=== PATIENT | female | born 1965 | race Caucasian/White ===

== ENCOUNTER 2017-10-22 13:35 | Emergency (ER) | payer OTHER ==
[~2017-10-22] VITALS: Ht 165.1 cm; Wt 61.4 kg
[~2017-10-22 13:35] MED LIST: CHOL20002 PO; CYCL-259 PO; ENZY1TAB2 PO; GLUC500T11 PO; LISI-170 PO; MULT-658 PO; OXYC1TAB9 PO; OXYC30TA66 PO; SERT50TA5 PO; [UNRECOGNIZED DRUG - CODE] PO
[2017-10-22] MEDS ORDERED: OXYcodone/APAP 5/325MG TABLET PO ONE (15:00)
[2017-10-22 15:31] VITALS: BP 147/83
[2017-10-22] MEDS ORDERED: OXYcodone IR 5MG TABLET PO ONE (16:30)
== END 2017-10-22 17:25 | disposition home or self-care (01) ==
LOC: ED 16:52
DX: S22.41XA Multiple fractures of ribs, right side, initial encounter for closed fracture (principal); X58.XXXA Exposure to other specified factors, initial encounter; Y93.89 Activity, other specified; Y92.89 Other specified places as the place of occurrence of the external cause; Y99.8 Other external cause status; G89.29 Other chronic pain; M25.551 Pain in right hip; I10 Essential (primary) hypertension
CPT/HCPCS: 93005; 99284

== ENCOUNTER 2019-01-01 10:22 | Emergency (ER) | payer OTHER ==
[~2019-01-01] VITALS: Ht 165.1 cm; Wt 66.0 kg
[~2019-01-01 10:22] MED LIST changes: +OXYC-432 PO; -OXYC1TAB9 PO; +SERT50TA28 PO; -SERT50TA5 PO
[2019-01-01] MEDS ORDERED: SODIUM CHLORIDE 0.9% 1,000ML IVBOLUS ONE (11:00)
[2019-01-01] MEDS ORDERED: SODIUM CHLORIDE FLUSH 10ML SYR IVF ONE (11:00)
[2019-01-01] MEDS ORDERED: HALOPERIDOL 5 MG/ML IV ONE (11:00)
--- NOTE | 2019-01-01 11:00 | NUR ---
pt presented to ed with n/v x 1 month. pt states she recently stopped her ms and smokes marijuana daily. pt very anxious and dry heeving. pt a&ox4. pt placed on bp, cardiac and cont pulse oximeter. assessment completed.
[2019-01-01] MEDS ORDERED: HALOPERIDOL 5 MG/ML ONE (11:07)
--- NOTE | 2019-01-01 11:13 | NUR ---
iv started and blood drawn. meds given iv. ekg done and presented to .
[2019-01-01 11:20] LABS: BASOPHILS # (AUTO) 0.02 x10^3/uL (0-0.1); BASOPHILS % (AUTO) 0 % (0-1); EOSINOPHILS % (AUTO) 0 % (1-7); LYMPHOCYTES # (AUTO) 0.99 x10^3/uL (1-3.4); LYMPHOCYTES % (AUTO) 9 % (22-44); MD NO; MEAN CORPUSCULAR HGB CONC 33.6 g/dL (32.4-35.8); MEAN CORPUSCULAR VOLUME 92.2 fL (80-100); MEAN PLATELET VOLUME 6.6 fL (7.4-10.4); MONOCYTES # (AUTO) 0.11 x10^3/uL (0.2-0.8); MONOCYTES % (AUTO) 1 % (2-9); NEUTROPHILS # (AUTO) 9.46 x10^3/uL (1.8-6.8); NEUTROPHILS % (AUTO) 89 % (42-75); PLATELET COUNT 409 x10^3/uL (130-400); RED BLOOD COUNT 4.57 x10^6/uL (3.82-5.3); RED CELL DISTRIBUTION WIDTH 14.7 % (9.6-15.2)
--- NOTE | 2019-01-01 11:45 | NUR ---
redraw blood. blood clotted.
[2019-01-01 11:54] LABS: ALBUMIN 3.9 g/dL (3.4-5.0); ANION GAP 9 mmol/L (5-15); CHLORIDE 111 mmol/L (98-107)
[2019-01-01 11:58] LABS: ALANINE AMINOTRANSFERASE 44 U/L (12-78); ALKALINE PHOSPHATASE 82 U/L (45-117); BILIRUBIN,TOTAL 0.4 mg/dL (0.2-1.0); CREATININE 0.78 mg/dL (0.55-1.02); TOTAL PROTEIN 6.9 g/dL (6.4-8.2)
--- NOTE | 2019-01-01 11:58 | NUR ---
pt sleeping in bed at this time.
[2019-01-01 13:01] VITALS: BP 140/72
== END 2019-01-01 13:06 | disposition home or self-care (01) ==
LOC: ED 11:27
DX: R11.2 Nausea with vomiting, unspecified (principal); I10 Essential (primary) hypertension
CPT/HCPCS: 36415; 74018; 80053; 83690; 85025; 93005; 96361; 96374; 99284; J1630; J7030

== ENCOUNTER 2019-12-11 11:50 | Emergency (ER) | payer OTHER ==
[~2019-12-11] VITALS: Ht 165.1 cm; Wt 61.3 kg
[2019-12-11 11:52] VITALS: BP 172/84
--- NOTE | 2019-12-11 12:09 | NUR ---
md is at the bedside to assess
[2019-12-11] MEDS ORDERED: CEFTRIAXONE 1,000 MG ONE (12:26)
[2019-12-11] MEDS ORDERED: LIDOCAINE-MPF 1%, 2ML ONE (12:26)
[2019-12-11] MEDS ORDERED: CEFTRIAXONE 1,000 MG IM ONE (12:30)
[2019-12-11 12:31] LABS: BASOPHILS # (AUTO) 0.03 x10^3/uL (0-0.1); BASOPHILS % (AUTO) 1 % (0-1); EOSINOPHILS # (AUTO) 0.04 x10^3/uL (0-0.4); EOSINOPHILS % (AUTO) 1 % (1-7); LYMPHOCYTES # (AUTO) 2.52 x10^3/uL (1-3.4); LYMPHOCYTES % (AUTO) 42 % (22-44); MD NO; MEAN CORPUSCULAR HEMOGLOBIN 31.6 pg (27.0-34.8); MEAN CORPUSCULAR HGB CONC 33.2 g/dL (32.4-35.8); MEAN CORPUSCULAR VOLUME 95.2 fL (80-100); MEAN PLATELET VOLUME 6.5 fL (7.4-10.4); MONOCYTES # (AUTO) 0.52 x10^3/uL (0.2-0.8); MONOCYTES % (AUTO) 9 % (2-9); NEUTROPHILS # (AUTO) 2.87 x10^3/uL (1.8-6.8); NEUTROPHILS % (AUTO) 48 % (42-75); PLATELET COUNT 381 x10^3/uL (130-400); RED BLOOD COUNT 4.48 x10^6/uL (3.82-5.3); RED CELL DISTRIBUTION WIDTH 14.4 % (9.6-15.2)
--- NOTE | 2019-12-11 12:35 | NUR ---
pt complaining of 10/10 pain from im injection. z track method and appropriate anatomical markers utilized for injection. med mixed with 1% lidocaine for comfort. md is aware
--- NOTE | 2019-12-11 12:38 | NUR ---
reggie (rn) is assuming care of this pt at this time. sbar report was exchanged at the bedside.
[2019-12-11 12:40] LABS: ALBUMIN 4.2 g/dL (3.4-5.0); ANION GAP 6 mmol/L (5-15); CALCIUM 8.8 mg/dL (8.5-10.1); CHLORIDE 108 mmol/L (98-107)
== END 2019-12-11 13:58 | disposition home or self-care (01) ==
LOC: ED 12:10
DX: L03.211 Cellulitis of face (principal)
CPT/HCPCS: 36415; 80048; 82040; 85025; 96372; 99283; J0696

== ENCOUNTER 2020-02-27 17:07 | Emergency (ER) | payer OTHER ==
[~2020-02-27] VITALS: Ht 162.6 cm; Wt 66.7 kg
[2020-02-27 17:35] LABS: BASOPHILS % (AUTO) 1 % (0-1); EOSINOPHILS # (AUTO) 0.12 x10^3/uL (0-0.4); EOSINOPHILS % (AUTO) 1 % (1-7); LYMPHOCYTES # (AUTO) 3.27 x10^3/uL (1-3.4); LYMPHOCYTES % (AUTO) 36 % (22-44); MD NO; MEAN CORPUSCULAR HEMOGLOBIN 31.6 pg (27.0-34.8); MEAN CORPUSCULAR HGB CONC 33.4 g/dL (32.4-35.8); MEAN CORPUSCULAR VOLUME 94.6 fL (80-100); MEAN PLATELET VOLUME 6.8 fL (7.4-10.4); MONOCYTES % (AUTO) 9 % (2-9); NEUTROPHILS % (AUTO) 52 % (42-75); PLATELET COUNT 442 x10^3/uL (130-400); RED BLOOD COUNT 4.32 x10^6/uL (3.82-5.3)
[2020-02-27 17:41] LABS: ALBUMIN 3.8 g/dL (3.4-5.0); ANION GAP 4 mmol/L (5-15); CHLORIDE 106 mmol/L (98-107); CREATININE 1.13 mg/dL (0.55-1.02)
[2020-02-27 19:22] VITALS: BP 138/92
--- NOTE | 2020-02-27 19:22 | NUR ---
Pt presents to ed c/o chronic wound starting on "crotch" and treated as mrsa. States wound on "crotch" is well healed, but has been taking abx for 3 months for secondary on L side of cheek. Wound looks like it is in multiple stages of healing w/ a fresh scab on the top. Denies febrile s/s at home. Vss. Pa at bedside for assessment.
--- NOTE | 2020-02-27 19:31 | NUR ---
REPORT FROM HELDER LEON. [facility] DENIES NEEDS.
--- NOTE | 2020-02-27 20:02 | NUR ---
DC EDUCATION PROVIDED, PT DEMONSTRATES UNDERSTANDING.PT AMBULATED STEADILY TO DC WITH RN AND SO. SO TO TRANSPORT PT HOME
== END 2020-02-27 20:05 | disposition home or self-care (01) ==
LOC: ED 19:55
DX: S01.412D Laceration without foreign body of left cheek and temporomandibular area, subsequent encounter (principal); I10 Essential (primary) hypertension; J45.909 Unspecified asthma, uncomplicated; R00.0 Tachycardia, unspecified; X58.XXXD Exposure to other specified factors, subsequent encounter
CPT/HCPCS: 36415; 80048; 82040; 85025; 99283

== ENCOUNTER 2020-03-01 11:02 | Inpatient (IN) | payer OTHER ==
[~2020-03-01] VITALS: Ht 165.1 cm; Wt 66.5 kg
--- NOTE | 2020-03-01 11:29 | NUR ---
PT CAME TO ED CO OF MRSA ON HER CHEECK AND VAGINAL SWELLING AND PAIN. PT IS BEING TREATED FOR MRSA WITH ABX AND CREAM BUT SAYS "THE ABX ARE MAKING ME NV AND I FEEL HOT" PT RESTING IN [facility]. IS BEDSIDE. ISO CART OUTSIDE OF ROOM
[2020-03-01] MEDS ORDERED: SODIUM CHLORIDE 0.9% 1,000ML IVBOLUS ONE (12:00)
[2020-03-01] MEDS ORDERED: ONDANSETRON 2MG/ML, 2ML IVPush ONE (12:00)
[2020-03-01 12:11] LABS: BASOPHILS # (AUTO) 0.06 x10^3/uL (0-0.1); BASOPHILS % (AUTO) 1 % (0-1); EOSINOPHILS # (AUTO) 0.05 x10^3/uL (0-0.4); EOSINOPHILS % (AUTO) 1 % (1-7); LYMPHOCYTES # (AUTO) 1.65 x10^3/uL (1-3.4); LYMPHOCYTES % (AUTO) 21 % (22-44); MD NO; MEAN CORPUSCULAR HEMOGLOBIN 32.2 pg (27.0-34.8); MEAN CORPUSCULAR HGB CONC 34.5 g/dL (32.4-35.8); MEAN CORPUSCULAR VOLUME 93.5 fL (80-100); MEAN PLATELET VOLUME 6.7 fL (7.4-10.4); MONOCYTES % (AUTO) 9 % (2-9); NEUTROPHILS # (AUTO) 5.48 x10^3/uL (1.8-6.8); NEUTROPHILS % (AUTO) 69 % (42-75); PLATELET COUNT 356 x10^3/uL (130-400); RED BLOOD COUNT 4.16 x10^6/uL (3.82-5.3); RED CELL DISTRIBUTION WIDTH 14.4 % (9.6-15.2)
--- NOTE | 2020-03-01 12:19 | NUR ---
PT RESTING IN [facility]. RECTAL TEMP TAKEN. TEMP REPORTED TO
[2020-03-01 12:24] LABS: ALANINE AMINOTRANSFERASE 66 U/L (12-78); ALBUMIN 3.9 g/dL (3.4-5.0); ANION GAP 6 mmol/L (5-15); CALCIUM 9.4 mg/dL (8.5-10.1); CHLORIDE 109 mmol/L (98-107); CREATININE 0.98 mg/dL (0.55-1.02)
[2020-03-01 12:26] LABS: ALKALINE PHOSPHATASE 70 U/L (45-117); BILIRUBIN,TOTAL 0.8 mg/dL (0.2-1.0); TOTAL PROTEIN 7.2 g/dL (6.4-8.2)
[2020-03-01] MEDS ORDERED: ACETAMINOPHEN 500 MG TABLET ONE (12:28)
[2020-03-01] MEDS ORDERED: PROMETHAZINE 25 MG/ML, 1ML ONE (12:28)
[2020-03-01] MEDS ORDERED: PROMETHAZINE 25 MG/ML, 1ML IM ONE (12:30)
[2020-03-01] MEDS ORDERED: ACETAMINOPHEN 500 MG TABLET PO ONE (12:30)
[2020-03-01] MEDS ORDERED: MAALOX/HYOSCYAMINE/LIDOCAINE 45 ML BTL ONE (13:26)
[2020-03-01] MEDS ORDERED: MAALOX/HYOSCYAMINE/LIDOCAINE 45 ML BTL PO ONE (13:30)
--- NOTE | 2020-03-01 13:33 | NUR ---
PT REPORTS NAUSEA IMPROVMENT
[2020-03-01] MEDS ORDERED: METOCLOPRAMIDE 5 MG/ML, 2ML IVPush ONE (14:00)
[2020-03-01] MEDS ORDERED: METOCLOPRAMIDE 5 MG/ML, 2ML ONE (14:15)
--- NOTE | 2020-03-01 14:17 | NUR ---
PT IS RESTING IN [facility]. WATCHING VIDEOS ON CELL PHONE. NAD
[2020-03-01] MEDS: LINEZOLID PMX 600MG/300ML 300 ML IV SCH (16:21)
[2020-03-01] MEDS: SODIUM CHLORIDE 0.9% 1,000 ML IV SCH (16:21)
[2020-03-01] MEDS: ENOXAPARIN 40 MG/0.4 ML SQ SCH (16:22)
[2020-03-01] MEDS: LACTOBACILLUS CHEW TABLET PO SCH ×2 (16:22→21:07)
[2020-03-01 16:33] VITALS: BP 117/67
[2020-03-01] MEDS: MUPIROCIN OINT 2%, 22GM TP SCH (18:31)
[2020-03-01] MEDS: ACETAMINOPHEN 325 MG TABLET PO SCH (18:31)
[2020-03-01 18:49] VITALS: BP 140/79
[2020-03-01] MEDS: ONDANSETRON 2MG/ML, 2ML IVPush PRN (21:13)
[2020-03-02] MEDS: ACETAMINOPHEN 325 MG TABLET PO SCH ×4 (00:33→20:27)
[2020-03-02 00:34] VITALS: BP 113/78
[2020-03-02] MEDS: LINEZOLID PMX 600MG/300ML 300 ML IV SCH ×2 (04:42→15:46)
[2020-03-02 05:18] LABS: ANION GAP 5 mmol/L (5-15); CALCIUM 8.5 mg/dL (8.5-10.1); CHLORIDE 111 mmol/L (98-107)
[2020-03-02 05:19] LABS: BASOPHILS % (AUTO) 0 % (0-1); CREATININE 0.83 mg/dL (0.55-1.02); EOSINOPHILS # (AUTO) 0.07 x10^3/uL (0-0.4); EOSINOPHILS % (AUTO) 1 % (1-7); LYMPHOCYTES # (AUTO) 2.31 x10^3/uL (1-3.4); LYMPHOCYTES % (AUTO) 42 % (22-44); MD NO; MEAN CORPUSCULAR HEMOGLOBIN 31.7 pg (27.0-34.8); MEAN CORPUSCULAR HGB CONC 33.8 g/dL (32.4-35.8); MEAN PLATELET VOLUME 6.8 fL (7.4-10.4); MONOCYTES # (AUTO) 0.36 x10^3/uL (0.2-0.8); MONOCYTES % (AUTO) 7 % (2-9); NEUTROPHILS # (AUTO) 2.77 x10^3/uL (1.8-6.8); NEUTROPHILS % (AUTO) 50 % (42-75); PLATELET COUNT 323 x10^3/uL (130-400); RED BLOOD COUNT 3.89 x10^6/uL (3.82-5.3); RED CELL DISTRIBUTION WIDTH 14.5 % (9.6-15.2)
[2020-03-02] MEDS: ONDANSETRON 2MG/ML, 2ML IVPush PRN ×3 (06:40→22:38)
[2020-03-02] MEDS: MUPIROCIN OINT 2%, 22GM TP SCH ×2 (06:44→18:00)
[2020-03-02] MEDS: LISINOPRIL 20 MG TABLET PO SCH (07:34)
[2020-03-02] MEDS: SERTRALINE 50MG TABLET PO SCH (07:34)
[2020-03-02] MEDS: LACTOBACILLUS CHEW TABLET PO SCH ×3 (07:34→20:27)
[2020-03-02] MEDS: SODIUM CHLORIDE 0.9% 1,000 ML IV SCH (07:35)
[2020-03-02 08:30] VITALS: BP 136/85
[2020-03-02] MEDS ORDERED: CYCLOBENZAPRINE 10 MG TABLET PO SCH (09:00)
[2020-03-02] MEDS ORDERED: MAALOX/HYOSCYAMINE/LIDOCAINE 45 ML BTL PO ONE (11:30)
[2020-03-02 14:20] VITALS: BP 152/90
[2020-03-02] MEDS: ENOXAPARIN 40 MG/0.4 ML SQ SCH (15:30)
[2020-03-02] MEDS ORDERED: TIZA2CAP PO (15:53)
[2020-03-02] MEDS ORDERED: VENL75TA PO (15:53)
[2020-03-02] MEDS ORDERED: TRAZ-175 PO (15:53)
[2020-03-02 17:36] LABS: CLOSTRIDIUM DIFFICILE ANTIGEN NEGATIVE; CLOSTRIDIUM DIFFICILE TOXIN NEGATIVE (Negative)
[2020-03-02 18:42] VITALS: BP 121/76
[2020-03-02] MEDS: MELATONIN 5 MG TABLET PO SCH (20:27)
[2020-03-02] MEDS ORDERED: TRAZODONE 100MG TABLET PO SCH (21:00)
[2020-03-02] MEDS: TIZANIDINE 4MG TABLET PO SCH (22:57)
[2020-03-02] MEDS: KETOROLAC 30 MG/1 ML IV PRN (22:58)
[2020-03-03 00:23] VITALS: BP 95/63
[2020-03-03] MEDS: SODIUM CHLORIDE 0.9% 1,000 ML IV SCH ×2 (00:43→16:00)
[2020-03-03] MEDS: ACETAMINOPHEN 325 MG TABLET PO SCH ×4 (03:00→21:30)
[2020-03-03] MEDS: LINEZOLID PMX 600MG/300ML 300 ML IV SCH ×2 (03:34→16:00)
[2020-03-03] MEDS: ONDANSETRON 2MG/ML, 2ML IVPush PRN (05:28)
[2020-03-03 05:39] LABS: BASOPHILS # (AUTO) 0.04 x10^3/uL (0-0.1); BASOPHILS % (AUTO) 1 % (0-1); EOSINOPHILS # (AUTO) 0.11 x10^3/uL (0-0.4); EOSINOPHILS % (AUTO) 1 % (1-7); LYMPHOCYTES # (AUTO) 2.13 x10^3/uL (1-3.4); LYMPHOCYTES % (AUTO) 28 % (22-44); MD NO; MEAN CORPUSCULAR HEMOGLOBIN 31.7 pg (27.0-34.8); MEAN CORPUSCULAR HGB CONC 33.3 g/dL (32.4-35.8); MEAN CORPUSCULAR VOLUME 95.1 fL (80-100); MEAN PLATELET VOLUME 6.8 fL (7.4-10.4); MONOCYTES # (AUTO) 0.44 x10^3/uL (0.2-0.8); MONOCYTES % (AUTO) 6 % (2-9); NEUTROPHILS # (AUTO) 4.89 x10^3/uL (1.8-6.8); NEUTROPHILS % (AUTO) 64 % (42-75); PLATELET COUNT 298 x10^3/uL (130-400); RED BLOOD COUNT 3.82 x10^6/uL (3.82-5.3); RED CELL DISTRIBUTION WIDTH 14.4 % (9.6-15.2)
[2020-03-03 05:44] LABS: CHLORIDE 110 mmol/L (98-107)
[2020-03-03 05:55] LABS: ANION GAP 4 mmol/L (5-15); CREATININE 0.81 mg/dL (0.55-1.02)
[2020-03-03] MEDS: MUPIROCIN OINT 2%, 22GM TP SCH (06:15)
[2020-03-03] MEDS: KETOROLAC 30 MG/1 ML IV PRN (06:22)
[2020-03-03 06:46] VITALS: BP_SYST 139; BP_SYST 149; BP_DIAS 63; BP_DIAS 84
[2020-03-03] MEDS: LACTOBACILLUS CHEW TABLET PO SCH ×3 (08:40→21:30)
[2020-03-03] MEDS: ONDANSETRON ODT 4 MG PO PRN (08:40)
[2020-03-03] MEDS: SERTRALINE 50MG TABLET PO SCH (08:41)
[2020-03-03] MEDS: LISINOPRIL 20 MG TABLET PO SCH (08:41)
[2020-03-03] MEDS: PANTOPRAZOLE 40 MG IV IVPush SCH (08:41)
[2020-03-03] MEDS ORDERED: TIZANIDINE 4MG TABLET PO SCH (09:00)
[2020-03-03] MEDS ORDERED: SERTRALINE 50MG TABLET PO SCH (09:00)
[2020-03-03 09:16] LABS: HCT (SEDRATE) 36.3 % (34.6-47.8)
[2020-03-03] MEDS: DICYCLOMINE 10 MG CAPSULE PO SCH ×3 (10:46→21:30)
[2020-03-03] MEDS: ONDANSETRON 2MG/ML, 2ML IVPush SCH ×2 (10:46→16:00)
[2020-03-03] MEDS ORDERED: METOCLOPRAMIDE 5 MG/ML, 2ML IVPush PRN (11:00)
[2020-03-03] MEDS ORDERED: VENLAFAXINE XR 37.5MG CAP.ER.24H PO SCH ×3 (11:00→12:00)
[2020-03-03] MEDS: PROMETHAZINE 25MG TABLET PO PRN ×2 (11:35→21:30)
[2020-03-03] MEDS ORDERED: VENLAFAXINE XR 37.5MG CAP.ER.24H ONE (12:40)
[2020-03-03] MEDS: VENLAFAXINE XR 37.5MG CAP.ER.24H PO SCH (12:42)
[2020-03-03 14:00] VITALS: BP 128/77
[2020-03-03] MEDS: ENOXAPARIN 40 MG/0.4 ML SQ SCH (14:32)
[2020-03-03 18:41] VITALS: BP 153/94
[2020-03-03] MEDS: MELATONIN 5 MG TABLET PO SCH (21:31)
[2020-03-03] MEDS: TIZANIDINE 4MG TABLET PO SCH (21:31)
[2020-03-04] MEDS: ONDANSETRON 2MG/ML, 2ML IVPush SCH ×2 (00:15→05:45)
[2020-03-04] MEDS: KETOROLAC 30 MG/1 ML IV PRN (01:31)
[2020-03-04 02:06] VITALS: BP 115/79
[2020-03-04] MEDS: ACETAMINOPHEN 325 MG TABLET PO SCH ×2 (03:23→07:43)
[2020-03-04] MEDS: LINEZOLID PMX 600MG/300ML 300 ML IV SCH (03:23)
[2020-03-04] MEDS: DICYCLOMINE 10 MG CAPSULE PO SCH ×2 (05:45→10:25)
[2020-03-04 06:16] LABS: ALBUMIN 3.4 g/dL (3.4-5.0); ANION GAP 6 mmol/L (5-15); CALCIUM 8.5 mg/dL (8.5-10.1); CHLORIDE 108 mmol/L (98-107)
[2020-03-04 06:19] LABS: ALANINE AMINOTRANSFERASE 102 U/L (12-78); ALKALINE PHOSPHATASE 49 U/L (45-117); BILIRUBIN,TOTAL 0.3 mg/dL (0.2-1.0); CREATININE 0.87 mg/dL (0.55-1.02); TOTAL PROTEIN 6.1 g/dL (6.4-8.2)
[2020-03-04] MEDS ORDERED: MAGNESIUM SULFATE PMX 2GM/50ML 50 ML IV ONE (06:30)
[2020-03-04] MEDS ORDERED: POTASSIUM CHLORIDE 20 MEQ in SODIUM CHLORIDE 0.9% 250 ML IV ONE (06:30)
[2020-03-04 07:04] VITALS: BP 155/91
[2020-03-04] MEDS: VENLAFAXINE XR 37.5MG CAP.ER.24H PO SCH (07:42)
[2020-03-04] MEDS: LACTOBACILLUS CHEW TABLET PO SCH (07:43)
[2020-03-04] MEDS: LISINOPRIL 20 MG TABLET PO SCH (07:43)
[2020-03-04] MEDS: PANTOPRAZOLE 40 MG IV IVPush SCH (07:43)
[2020-03-04] MEDS: ONDANSETRON ODT 4 MG PO PRN (07:43)
[2020-03-04] MEDS: SERTRALINE 50MG TABLET PO SCH (07:44)
[2020-03-04] MEDS ORDERED: VENLAFAXINE XR 37.5MG CAP.ER.24H PO SCH (09:00)
[2020-03-04] MEDS ORDERED: DICY10CA3 PO (12:49)
[2020-03-04] MEDS ORDERED: ONDA4TAB13 PO (12:49)
[2020-03-04] MEDS ORDERED: PANT40TA3 PO (13:10)
== END 2020-03-04 13:33 | disposition home or self-care (01) | DRG 392 ==
LOC: ED 11:27 → EDIP 14:05 → 3N 15:05
PROVIDERS: ADMIT Internal Medicine; ATTEND Hospitalist
DX: K52.9 Noninfective gastroenteritis and colitis, unspecified (principal); E86.0 Dehydration; E87.6 Hypokalemia; F32.9 Major depressive disorder, single episode, unspecified; F43.20 Adjustment disorder, unspecified; G89.4 Chronic pain syndrome; I10 Essential (primary) hypertension; J45.909 Unspecified asthma, uncomplicated; L40.9 Psoriasis, unspecified; M06.9 Rheumatoid arthritis, unspecified; Z86.14 Personal history of Methicillin resistant Staphylococcus aureus infection; Z90.710 Acquired absence of both cervix and uterus; Z88.0 Allergy status to penicillin; Z88.8 Allergy status to other drugs, medicaments and biological substances; Z91.040 Latex allergy status
CPT/HCPCS: 36415; 74018; 84145; 96361; 96372; 96374; 96375; 99285; Q0169; 71045; 80048; 80053; 80074; 83605; 83690; 83735; 84100; 84443; 85025; 85651; 87040; 87324; 93005; G0378; J1650; J1885; J2020; J2405; J2550; J3480; Q0162; C9113; J2765; J3475; J7030; J7050